=== PATIENT | female | born 1935 | race Caucasian/White ===

== ENCOUNTER → 2016-09-13 | Outpatient (CLI) | payer MEDICARE ==
[~2016-09-13] MED LIST: ASPIRIN; ATENOLOL; CYMBALTA; GLUCOTROL; LISINOPRIL; LORTAB 10/500 T1 TAB; MAXZIDE 75/50 T1 TAB; METFORMIN; MULTI-VITAMIN1 TAB; NIFEREX-150150 MG; PLAVIX; TRENTAL400 MG; ZAROXYLYN; [UNRECOGNIZED DRUG - OTHER]; [UNRECOGNIZED DRUG - OTHER]
--- NOTE | ~2016-09-13 | US128 ---
[id number] [address] [address] [id number] O MR#: [id number] Acc #: [id number] NAME: IRWIN COLE : 1935 SEX: F STUDY DATE/TIME: 09/13/2016 13:10 UNIT: [facility] ROOM: STUDY DESCRIPTION: US Thyroid Attending Physician: Isreal Taylor M.D. Referring Physician: Isreal Taylor M.D. Ordering Physician: Isreal Taylor M.D. Primary Care Physician: Isreal Taylor M.D. MEDICAL IMAGING REPORT This report is preliminary unless electronic signature is present. EXAM Thyroid ultrasound, 09/13/2016. HISTORY Abnormal CT cervical spine demonstrating right thyroid nodule, for which ultrasound was recommended. COMPARISON CT cervical spine without contrast, 08/28/2016. Thyroid ultrasound 01/28/2009. FINDINGS The right thyroid lobe measures 4.2 x 2.4 x 1.9 cm. The isthmus measures 6.6-mm in thickness. The left thyroid lobe measures 2.7 x 1.5 x 1.6 cm. Multiple bilateral thyroid nodules are present. There is a dominant hypoechoic solid-appearing nodule located in the right rjl-by-eijly thyroid pole, measuring 1.3 x 1.1 x 1.1 cm. It has an internal echogenic focus, with acoustic shadowing, worrisome for microcalcifications. Ultrasound-guided fine needle aspiration is recommended, if not previously performed. It is unclear to me whether this represents the same lesion described on the 01/28/2009 examination. Certainly, the nodule within the right lower thyroid pole on the previous study had larger measurements. Nonetheless, ultrasound-guided fine needle aspiration is advised at this time. Benign-appearing cyst in the right lower thyroid pole with a single thin internal septation measures up to 10 mm. Within the left thyroid lobe, a simple-appearing cyst is seen in the left mid lobe measuring nearly 9 mm. A benign-appearing colloid cyst is thought to be present in the left lower thyroid pole, measuring about 11 mm. The hypoechoic lesion described on previous ultrasound of the left lower thyroid pole has no sonographic correlate today. IMPRESSION Suspicious-appearing solid nodule in the right ahn-es-bkacc thyroid pole containing questionable microcalcifications, measuring 1.4 cm. Ultrasound-guided fine needle aspiration is recommended. Dictated by... Loida Stephen M.D. THIS IS AN ELECTRONICALLY VERIFIED REPORT Loida Stephen M.D. at 09/14/2016 9:41 AM TYRELL/bobbi TD: 09/13/2016 16:39 JOB #: [id number] MEDICAL IMAGING REPORT Page 1 of 1
== END | disposition home or self-care (01) ==
LOC: SGUS 09-06 13:00
DX: R93.8 Abnormal findings on diagnostic imaging of other specified body structures (principal)
CPT/HCPCS: 76536